=== PATIENT | male | born 1970 | race Caucasian/White ===

== ENCOUNTER → 2016-09-27 | Outpatient (CLI) | payer BC ==
[~2016-09-27] MED LIST: Gadobenate Dimeglumine 529 MG/ML 20 ML SDV IV ONE
--- NOTE | 2016-09-29 16:04 | MR ---
EXAM DATE: 09/27/16 PATIENT'S AGE: 46 Patient: LUISANA DATE Facility: [facility], [facility] Site . Site : 1970 Study: MRI-Head W/ and W/O Cont [id number] 7:42:35 PM Ordering Physician: Rodrigo Chao Final Report: Indication: 46-year-old male. Abnormality of gait and mobility. Technique: Three plane volumetric T1 weighted, T2 axial, FLAIR axial, diffusion axial, ADC map axial and 3 plane postcontrast T1 images acquired. Findings: There is no restricted diffusion. There is no pathologic intracranial enhancement although image quality is moderately degraded by patient motion. The ventricles are normal. There is no pathologic intra-axial signal or pathologic extra-axial fluid collection. Cerebellar tonsils normally situated optic chiasm and pituitary normal. Right maxillary sinus is opacified. Mucosal thickening is otherwise present in the paranasal sinuses and left mastoid tip. Usual flow voids in the [place]. Intraorbital tissues are normal. Impression: 1. No intracranial mass, no hydrocephalus, no cerebellar atrophy or no acute intracranial finding. 2. Image degradation by patient motion. 3. No restricted diffusion. 4. No convincing pathologic intracranial enhancement. 5. No pathologic intra-axial signal. 6. Opacified right maxillary sinus. Correlation for symptoms of sinusitis is suggested. Benign mucosal thickening is otherwise present in the paranasal sinuses and left mastoid tip. Dictated by Gabriel Easton MD @ Sep 28 2016 4:42PM Signed by: Gabriel Easton MD @09/28/2016 4:48:56 PM (Electronic Signature) Report Signed by Proxy. [facility]
== END ==
LOC: MW.MRI 16:53
PROVIDERS: ATTEND Otolaryngology
DX: R26.89 Other abnormalities of gait and mobility (principal)
CPT/HCPCS: 70553; 70553-26; A9577

== ENCOUNTER 2019-04-04 17:09 | Observation (INO) | payer SELFPAY ==
[2019-04-04] MEDS ORDERED: Sodium Chloride 0.9% 1,000 ML IV ONE ×2 (17:11→19:01)
--- NOTE | 2019-04-04 17:33 | CT ---
INDICATION: Syncope. TECHNIQUE: CT head without IV contrast. COMPARISON: CT head 12/18/2015. FINDINGS: Moderate amount of loculated fluid and/or retention cysts in the left maxillary sinus more prominent. The complete opacification of the right maxillary sinus has resolved with mild mucosal thickening and nodularity in the maxillary sinus today. Moderate amounts of fluid and mucosal thickening in the ethmoidal sinuses. Small amount of fluid and mucosal thickening right frontal sinus. Mild mucosal thickening right sphenoid sinus new. Mucosal thickening in the left sphenoid sinus has resolved. Opacification of left inferior mastoid air cells stable and likely related to chronic inflammation. No acute intracranial hemorrhage, edema, or mass-effect. Remainder negative. IMPRESSION: 1. No acute intracranial disease. 2. Gdfg-ca-[id number] sinusitis has changed variably since December 2015. Stable chronic mild inflammatory changes left mastoid air cells. Please note that all CT scans at this facility use dose modulation, iterative reconstruction, and/or weight-based dosing when appropriate to reduce radiation dose to as low as reasonably achievable. Dictated by Mauricio Delacruz MD @ Apr 04 2019 5:28PM Signed by Dr. Mauricio Delacruz @ Apr 04 2019 5:31PM
--- NOTE | 2019-04-04 17:42 | CR ---
HISTORY: Syncope. COMPARISON: None. FINDINGS: Single AP view of the chest. The lungs are clear. Costophrenic angles sharp. Heart size and pulmonary vascularity within normal limits. Dictated by Maria Esther Pope MD @ Apr 04 2019 5:40PM Signed by Dr. Maria Esther Pope @ Apr 04 2019 5:41PM
--- NOTE | 2019-04-04 17:43 | EDM.PDOC ---
ED HPI GENERAL MEDICAL PROBLEM - General Chief Complaint: Syncope Stated Complaint: FAINTING Time Seen by Provider: 04/04/19 17:21 Source of Information: Reports: Patient History Limitations: Reports: No Limitations - History of Present Illness INITIAL COMMENTS - FREE TEXT/NARRATIVE: HISTORY AND PHYSICAL: History of present illness: Patient is a 48-year-old male who presents to the emergency room by EMS with syncope complaint. Prior to arrival the patient had been having a "normal day" but then had an episode where he felt very dizzy. He reports he had a brief syncopal event. EMS was called to scene. Upon arrival the ambulance crew states he was very pale and appeared diaphoretic. As they were getting his vital signs while he was resting on the cot he had a second syncopal event which lasted just a few seconds. They report that his pulse had gone down into the 40s and he was hypotensive. Blood sugar 80. Patient states he felt very dizzy and nauseated during this brief episode. Upon arrival the patient is alert and oriented. He states that his day was normal and he had not had anything out of the ordinary occur. He denies any drug abuse. He has had 3 beers today while eating. Patient denies any fever, chills, headache, change in vision. Denies any chest pain, back pain, shortness of breath or cough. Denies any abdominal pain, vomiting, diarrhea, constipation or dysuria. Has not noted any blood in urine or stool. Patient has been eating and drinking appropriately. Review of systems: As per history of present illness and below otherwise all systems reviewed and negative. Past medical history: As per history of present illness and as reviewed below otherwise noncontributory. Surgical history: As per history of present illness and as reviewed below otherwise noncontributory. Social history: See social history for further information Family history: As per history of present illness and as reviewed below otherwise noncontributory. Physical exam: General: Well-developed and well-nourished 48-year-old male. Alert and oriented. Nontoxic appearing and in no acute distress. HEENT: Atraumatic, normocephalic, pupils equal and reactive bilaterally, negative for conjunctival pallor or scleral icterus, mucous membranes moist, TMs normal bilaterally, throat clear, neck supple, nontender, trachea midline. No drooling or trismus noted. No meningeal signs. No hot potato voice noted. Lungs: Clear to auscultation, breath sounds equal bilaterally, chest nontender. Heart: S1S2, regular rate and rhythm without overt murmur Abdomen: Soft, nondistended, nontender. Negative for masses. Negative for costovertebral tenderness. Pelvis: Stable nontender. Skin: Intact, warm, dry. No lesions or rashes noted. Extremities: Atraumatic, moves all extremities per self without difficulty or deficits, negative for cords or calf pain. Neurovascular unremarkable. Neuro: Awake, alert, oriented. Cranial nerves II through XII unremarkable. Cerebellum unremarkable. Motor and sensory unremarkable throughout. Exam nonfocal. Notes: Patient had 1 L bolus and 4 mg of Zofran prior to arrival. Orthostatic vital signs are unremarkable and he was asymptomatic. Head CT and chest x-ray are unremarkable. Lab work is unremarkable. Discussed findings with patient. He is agreeable for admission. Dr. Bay was consulted and agreeable for further care and management. Patient will be placed on telemetry Diagnostics: CBC, CMP, troponin, EKG, chest x-ray, head CT, lipase, drug screen, UA, orthostatic vital signs Therapeutics: Normal saline at 125 per hour Impression: Syncope Plan: Observation admission with Telemetry Definitive disposition and diagnosis as appropriate pending reevaluation and review of above. - Related Data Allergies Allergy/AdvReac Type Severity Reaction Status Date / Time No Known Allergies Allergy Verified 05/23/16 12:20 Home Meds: Home Meds . [No Known Home Meds] 02/14/15 [History] Past Medical History HEENT History: Reports: None Cardiovascular History: Reports: None Respiratory History: Reports: None Gastrointestinal History: Reports: None Genitourinary History: Reports: None Musculoskeletal History: Reports: None Neurological History: Reports: Vertigo Psychiatric History: Reports: Learning Disability Endocrine/Metabolic History: Reports: None Hematologic History: Reports: None Immunologic History: Reports: None Oncologic (Cancer) History: Reports: None Dermatologic History: Reports: None - Infectious Disease History Infectious Disease History: Reports: Chicken Pox - Past Surgical History Head Surgeries/Procedures: Reports: None HEENT Surgical History: Reports: Tonsillectomy Cardiovascular Surgical History: Reports: None Respiratory Surgical History: Reports: None GI Surgical History: Reports: None Male Surgical History: Reports: None Endocrine Surgical History: Reports: None Neurological Surgical History: Reports: None Musculoskeletal Surgical History: Reports: Other (See Below) Oncologic Surgical History: Reports: None Dermatological Surgical History: Reports: None Social & Family History - Family History Family Medical History: Noncontributory - Tobacco Use Smoking Status *Q: Never Smoker Second Hand Smoke Exposure: No - Caffeine Use Caffeine Use: Reports: Coffee, Energy Drinks Caffeine Use Comment: 1-2/day - Recreational Drug Use Recreational Drug Use: No ED ROS GENERAL - Review of Systems Review Of Systems: Comprehensive ROS is negative, except as noted in HPI. - Physical Exam Exam: See Below (See dictation) Course - Vital Signs Last Recorded V/S: Last Vital Signs Temp 97.2 F 04/04/19 17:11 Pulse 60 04/04/19 18:10 Resp 16 04/04/19 18:10 BP 136/77 04/04/19 18:10 Pulse Ox 98 04/04/19 18:10 Orthostatic Blood Pressure [ 123/80 Standing] Orthostatic Blood Pressure [ 136/81 Sitting] Orthostatic Blood Pressure [ 126/74 Supine] - Orders/Labs/Meds Orders: Active Orders 24 hr Category Date Time Status Admission Status [Patient Status] [ADT] Stat ADT 04/04/19 18:09 Ordered EKG Documentation Completion [RC] STAT Care 04/04/19 17:11 Active Orthostatic Vital Signs [RC] ASDIRECTED Care 04/04/19 17:11 Active Sodium Chloride 0.9% [Normal Saline] 1,000 ml Med 04/04/19 17:11 Active IV STAT Medication Orders Sodium Chloride (Normal Saline) 1,000 mls @ 999 mls/hr IV STAT ONE Stop: 04/04/19 18:11 Last Admin: 04/04/19 17:32 Dose: 999 mls/hr Labs: Laboratory Tests 04/04/19 04/04/19 04/04/19 Range/Units 17:13 17:13 17:40 WBC 8.25 (4.0-11.0) K/uL RBC 4.66 (4.50-5.90) M/uL Hgb 13.9 (13.0-17.0) g/dL Hct 41.6 (38.0-50.0) % MCV 89.3 (80.0-98.0) fL MCH 29.8 (27.0-32.0) pg MCHC 33.4 (31.0-37.0) g/dL RDW Std Deviation 41.1 (28.0-62.0) fl RDW Coeff of Andriy 13 (11.0-15.0) % Plt Count 330 (150-400) K/uL MPV 9.40 (7.40-12.00) fL Neut % (Auto) 52.5 (48.0-80.0) % Lymph % (Auto) 37.9 (16.0-40.0) % [place] % (Auto) 5.3 (0.0-15.0) % Eos % (Auto) 4.1 (0.0-7.0) % Baso % (Auto) 0.2 (0.0-1.5) % Neut # (Auto) 4.3 (1.4-5.7) K/uL Lymph # (Auto) 3.1 H (0.6-2.4) K/uL [place] # (Auto) 0.4 (0.0-0.8) K/uL Eos # (Auto) 0.3 (0.0-0.7) K/uL Baso # (Auto) 0.0 (0.0-0.1) K/uL Nucleated RBC % 0.0 /100WBC Nucleated RBCs # 0 K/uL Sodium 140 (136-148) mmol/L Potassium 4.0 (3.5-5.1) mmol/L Chloride 104 (98-107) mmol/L Carbon Dioxide 25.7 (21.0-32.0) mmol/L BUN 10 (7.0-18.0) mg/dL Creatinine 1.1 (0.8-1.3) mg/dL Est Cr Clr Drug Dosing 98.64 mL/min Estimated GFR (MDRD) > 60.0 ml/min Glucose 113 H (74-106) mg/dL Calcium 8.5 (8.5-10.1) mg/dL Total Bilirubin 0.4 (0.2-1.0) mg/dL AST 17 (15-37) IU/L ALT 45 (14-63) IU/L Alkaline Phosphatase 76 (46-116) U/L Troponin I < 0.050 (0.000-0.056) ng/mL Total Protein 6.9 (6.4-8.2) g/dL Albumin 3.0 L (3.4-5.0) g/dL Globulin 3.9 (2.6-4.0) g/dL Albumin/Globulin Ratio 0.8 L (0.9-1.6) Lipase 112 (73-393) U/L Urine Color YELLOW Urine Appearance CLEAR Urine pH 5.5 (5.0-8.0) Ur Specific [place] 1.010 (1.001-1.035) Urine Protein NEGATIVE (NEGATIVE) mg/dL Urine Glucose (UA) NEGATIVE (NEGATIVE) mg/dL Urine Ketones NEGATIVE (NEGATIVE) mg/dL Urine Occult Blood NEGATIVE (NEGATIVE) Urine Nitrite NEGATIVE (NEGATIVE) Urine Bilirubin NEGATIVE (NEGATIVE) Urine Urobilinogen 0.2 (<2.0) EU/dL Ur Leukocyte Esterase NEGATIVE (NEGATIVE) Urine Opiates Screen (NEGATIVE) Ur Oxycodone Screen (NEGATIVE) Urine Methadone Screen (NEGATIVE) Ur Barbiturates Screen (NEGATIVE) Ur Phencyclidine Scrn (NEGATIVE) Ur Amphetamine Screen (NEGATIVE) U Methamphetamines Scrn (NEGATIVE) U Benzodiazepines Scrn (NEGATIVE) U Cocaine Metab Screen (NEGATIVE) U Marijuana (THC) Screen (NEGATIVE) Ethyl Alcohol 16 mg/dL 04/04/19 Range/Units 17:40 WBC (4.0-11.0) K/uL RBC (4.50-5.90) M/uL Hgb (13.0-17.0) g/dL Hct (38.0-50.0) % MCV (80.0-98.0) fL MCH (27.0-32.0) pg MCHC (31.0-37.0) g/dL RDW Std Deviation (28.0-62.0) fl RDW Coeff of Andriy (11.0-15.0) % Plt Count (150-400) K/uL MPV (7.40-12.00) fL Neut % (Auto) (48.0-80.0) % Lymph % (Auto) (16.0-40.0) % [place] % (Auto) (0.0-15.0) % Eos % (Auto) (0.0-7.0) % Baso % (Auto) (0.0-1.5) % Neut # (Auto) (1.4-5.7) K/uL Lymph # (Auto) (0.6-2.4) K/uL [place] # (Auto) (0.0-0.8) K/uL Eos # (Auto) (0.0-0.7) K/uL Baso # (Auto) (0.0-0.1) K/uL Nucleated RBC % /100WBC Nucleated RBCs # K/uL Sodium (136-148) mmol/L Potassium (3.5-5.1) mmol/L Chloride (98-107) mmol/L Carbon Dioxide (21.0-32.0) mmol/L BUN (7.0-18.0) mg/dL Creatinine (0.8-1.3) mg/dL Est Cr Clr Drug Dosing mL/min Estimated GFR (MDRD) ml/min Glucose (74-106) mg/dL Calcium (8.5-10.1) mg/dL Total Bilirubin (0.2-1.0) mg/dL AST (15-37) IU/L ALT (14-63) IU/L Alkaline Phosphatase (46-116) U/L Troponin I (0.000-0.056) ng/mL Total Protein (6.4-8.2) g/dL Albumin (3.4-5.0) g/dL Globulin (2.6-4.0) g/dL Albumin/Globulin Ratio (0.9-1.6) Lipase (73-393) U/L Urine Color Urine Appearance Urine pH (5.0-8.0) Ur Specific [place] (1.001-1.035) Urine Protein (NEGATIVE) mg/dL Urine Glucose (UA) (NEGATIVE) mg/dL Urine Ketones (NEGATIVE) mg/dL Urine Occult Blood (NEGATIVE) Urine Nitrite (NEGATIVE) Urine Bilirubin (NEGATIVE) Urine Urobilinogen (<2.0) EU/dL Ur Leukocyte Esterase (NEGATIVE) Urine Opiates Screen NEGATIVE (NEGATIVE) Ur Oxycodone Screen NEGATIVE (NEGATIVE) Urine Methadone Screen NEGATIVE (NEGATIVE) Ur Barbiturates Screen NEGATIVE (NEGATIVE) Ur Phencyclidine Scrn NEGATIVE (NEGATIVE) Ur Amphetamine Screen NEGATIVE (NEGATIVE) U Methamphetamines Scrn NEGATIVE (NEGATIVE) U Benzodiazepines Scrn NEGATIVE (NEGATIVE) U Cocaine Metab Screen NEGATIVE (NEGATIVE) U Marijuana (THC) Screen NEGATIVE (NEGATIVE) Ethyl Alcohol mg/dL Meds: Medications Generic Name Dose Route Start Last Admin Trade Name Viviana PRN Reason Stop Dose Admin Sodium Chloride 1,000 mls @ 999 mls/hr 04/04/19 17:11 04/04/19 17:32 Normal Saline IV 04/04/19 18:11 999 mls/hr STAT ONE Administration Departure - Departure Time of Disposition: 18:11 Disposition: Refer to Observation Clinical Impression: Syncope Qualifiers: Syncope type: unspecified Qualified Code(s): R55 - Syncope and collapse - Discharge Information Referrals: PCP,Unobtain [Primary Care Provider] - Forms: ED Department Discharge - My Orders Last 24 Hours: My Active Orders 04/04/19 17:11 EKG Documentation Completion [RC] STAT Orthostatic Vital Signs [RC] ASDIRECTED Sodium Chloride 0.9% [Normal Saline] 1,000 ml IV STAT 04/04/19 18:09 Admission Status [Patient Status] [ADT] Stat - Assessment/Plan Last 24 Hours: My Active Orders 04/04/19 17:11 EKG Documentation Completion [RC] STAT Orthostatic Vital Signs [RC] ASDIRECTED Sodium Chloride 0.9% [Normal Saline] 1,000 ml IV STAT 04/04/19 18:09 Admission Status [Patient Status] [ADT] Stat
[2019-04-04 17:56] LABS: BLOOD UREA NITROGEN,BUN 10 mg/dL (7.0-18.0); CARBON DIOXIDE,CO2 25.7 mmol/L (21.0-32.0); CHLORIDE,CL 104 mmol/L (98-107); GLUCOSE RANDOM 113 mg/dL (74-106); LIPASE 112 U/L (73-393); SODIUM,NA 140 mmol/L (136-148)
[2019-04-04] MEDS ORDERED: Acetaminophen 325 MG Tab PO PRN (18:50)
[2019-04-04] MEDS ORDERED: Ondansetron 4 MG Tab.DIS PO PRN (18:50)
[2019-04-04] MEDS ORDERED: Ondansetron 4 MG/2 ML SDV IVPUSH PRN (18:50)
[2019-04-04] MEDS ORDERED: Enoxaparin 40 MG/0.4 ML Syringe SUBCUT SCH (19:00)
--- NOTE | 2019-04-04 19:00 | PCM.HP.2 ---
<Stef Alvarado M - Last Filed: 04/05/19 12:51> H&P History of Present Illness - General Date of Service: 04/04/19 Admit Problem/Dx: Admission Diagnosis/Problem Admission Diagnosis/Problem Syncope Source of Information: Patient History Limitations: Reports: No Limitations - History of Present Illness Initial Comments - Free Text/Narative: 48-year-old male presented to ER via EMS after having a syncopal episode while at home earlier today. He reports no significant PMH. Patient reports that he was sitting while talking with people at home and noticed his vision started closing in and felt dizzy. He then got up but then noted this made his symptoms worse and then he fell to the floor. There was no witnessed seizure activity and he denies any bowel or bladder incontinence. He reports that he may have been a little dehydrated today. EMS was called and they noted that when they were checking his vitals he had another syncopal episode. His HR at the time was in the 40's and his blood pressure was low. He was then transferred to the ER for further work-up. Patient reports that he has been in his normal state of health recently. Denies fevers, chills, shortness of breath, nausea, chest pain , abdominal pain, diarrhea, blood in stool or blood in urine. Since being in the ER patient has had no recurrence of symptoms. Reports quitting smoking 1 year ago, drinks 6 pack per week and occasional marijuana use. In the ER, EKG showed normal sinus rhythm with HR in the 60's. Blood pressure stable. CBC and CMP unremarkable. Initial troponin negative. CXR negative. CT head negative. UA and UDS unremarkable. Negative for orthostatic hypotension. Patient admitted for further evaluation. - Related Data Allergies/Adverse Reactions: Allergies Allergy/AdvReac Type Severity Reaction Status Date / Time No Known Allergies Allergy Verified 04/04/19 22:07 Home Medications: Home Meds . [No Known Home Meds] 02/14/15 [History] Past Medical History HEENT History: Reports: None Cardiovascular History: Reports: None Respiratory History: Reports: None Gastrointestinal History: Reports: None Genitourinary History: Reports: None Musculoskeletal History: Reports: None Neurological History: Reports: Vertigo Psychiatric History: Reports: Learning Disability Endocrine/Metabolic History: Reports: None Hematologic History: Reports: None Immunologic History: Reports: None Oncologic (Cancer) History: Reports: None Dermatologic History: Reports: None - Infectious Disease History Infectious Disease History: Reports: Chicken Pox - Past Surgical History Head Surgeries/Procedures: Reports: None HEENT Surgical History: Reports: Tonsillectomy Cardiovascular Surgical History: Reports: None Respiratory Surgical History: Reports: None GI Surgical History: Reports: None Male Surgical History: Reports: None Endocrine Surgical History: Reports: None Neurological Surgical History: Reports: None Musculoskeletal Surgical History: Reports: Other (See Below) Oncologic Surgical History: Reports: None Dermatological Surgical History: Reports: None Social & Family History - Family History Family Medical History: Noncontributory - Tobacco Use Smoking Status *Q: Never Smoker Second Hand Smoke Exposure: No - Caffeine Use Caffeine Use: Reports: Coffee, Energy Drinks Caffeine Use Comment: 1-2/day - Recreational Drug Use Recreational Drug Use: No H&P Review of Systems - Review of Systems: Review Of Systems: Comprehensive ROS is negative, except as noted in HPI. Exam - Exam Exam: See Below - Vital Signs Vital Signs: Last Vital Signs Temp 97.2 F 04/04/19 17:11 Pulse 60 04/04/19 18:10 Resp 16 04/04/19 18:10 BP 136/77 04/04/19 18:10 Pulse Ox 98 04/04/19 18:10 Orthostatic Blood Pressure [ 123/80 Standing] Orthostatic Blood Pressure [ 136/81 Sitting] Orthostatic Blood Pressure [ 126/74 Supine] Weight: 123.377 kg - Exam General: Alert, Oriented, Cooperative, Other (NAD) HEENT: Conjunctiva Clear, EOMI, Hearing Intact, Mucosa Moist & [place], Posterior Pharynx Clear, Pupils Equal, Pupils Reactive Neck: Supple, Trachea Midline Lungs: Clear to Auscultation, Normal Respiratory Effort Cardiovascular: Regular Rate, Regular Rhythm GI/Abdominal Exam: Normal Bowel Sounds, Soft, Non-Tender, No Distention Extremities: Normal Inspection, No Pedal Edema Peripheral Pulses: 2+: Posterior Tibial (L), Posterior Tibial (R) Skin: Warm, Dry, Intact Neurological: Cranial Nerves Intact, Strength Equal Bilateral, Normal Speech, Normal Tone Neuro Extensive - Mental Status: Alert, Oriented x3, Normal Mood/Affect - Patient Data Lab Results Last 24 hrs: Laboratory Results - last 24 hr 04/04/19 04/04/19 04/04/19 Range/Units 17:13 17:13 17:40 WBC 8.25 (4.0-11.0) K/uL RBC 4.66 (4.50-5.90) M/uL Hgb 13.9 (13.0-17.0) g/dL Hct 41.6 (38.0-50.0) % MCV 89.3 (80.0-98.0) fL MCH 29.8 (27.0-32.0) pg MCHC 33.4 (31.0-37.0) g/dL RDW Std Deviation 41.1 (28.0-62.0) fl RDW Coeff of Andriy 13 (11.0-15.0) % Plt Count 330 (150-400) K/uL MPV 9.40 (7.40-12.00) fL Neut % (Auto) 52.5 (48.0-80.0) % Lymph % (Auto) 37.9 (16.0-40.0) % [place] % (Auto) 5.3 (0.0-15.0) % Eos % (Auto) 4.1 (0.0-7.0) % Baso % (Auto) 0.2 (0.0-1.5) % Neut # (Auto) 4.3 (1.4-5.7) K/uL Lymph # (Auto) 3.1 H (0.6-2.4) K/uL [place] # (Auto) 0.4 (0.0-0.8) K/uL Eos # (Auto) 0.3 (0.0-0.7) K/uL Baso # (Auto) 0.0 (0.0-0.1) K/uL Nucleated RBC % 0.0 /100WBC Nucleated RBCs # 0 K/uL Sodium 140 (136-148) mmol/L Potassium 4.0 (3.5-5.1) mmol/L Chloride 104 (98-107) mmol/L Carbon Dioxide 25.7 (21.0-32.0) mmol/L BUN 10 (7.0-18.0) mg/dL Creatinine 1.1 (0.8-1.3) mg/dL Est Cr Clr Drug Dosing 98.64 mL/min Estimated GFR (MDRD) > 60.0 ml/min Glucose 113 H (74-106) mg/dL Calcium 8.5 (8.5-10.1) mg/dL Total Bilirubin 0.4 (0.2-1.0) mg/dL AST 17 (15-37) IU/L ALT 45 (14-63) IU/L Alkaline Phosphatase 76 (46-116) U/L Troponin I < 0.050 (0.000-0.056) ng/mL Total Protein 6.9 (6.4-8.2) g/dL Albumin 3.0 L (3.4-5.0) g/dL Globulin 3.9 (2.6-4.0) g/dL Albumin/Globulin Ratio 0.8 L (0.9-1.6) Lipase 112 (73-393) U/L Urine Color YELLOW Urine Appearance CLEAR Urine pH 5.5 (5.0-8.0) Ur Specific [place] 1.010 (1.001-1.035) Urine Protein NEGATIVE (NEGATIVE) mg/dL Urine Glucose (UA) NEGATIVE (NEGATIVE) mg/dL Urine Ketones NEGATIVE (NEGATIVE) mg/dL Urine Occult Blood NEGATIVE (NEGATIVE) Urine Nitrite NEGATIVE (NEGATIVE) Urine Bilirubin NEGATIVE (NEGATIVE) Urine Urobilinogen 0.2 (<2.0) EU/dL Ur Leukocyte Esterase NEGATIVE (NEGATIVE) Urine Opiates Screen (NEGATIVE) Ur Oxycodone Screen (NEGATIVE) Urine Methadone Screen (NEGATIVE) Ur Barbiturates Screen (NEGATIVE) Ur Phencyclidine Scrn (NEGATIVE) Ur Amphetamine Screen (NEGATIVE) U Methamphetamines Scrn (NEGATIVE) U Benzodiazepines Scrn (NEGATIVE) U Cocaine Metab Screen (NEGATIVE) U Marijuana (THC) Screen (NEGATIVE) Ethyl Alcohol 16 mg/dL 04/04/19 Range/Units 17:40 WBC (4.0-11.0) K/uL RBC (4.50-5.90) M/uL Hgb (13.0-17.0) g/dL Hct (38.0-50.0) % MCV (80.0-98.0) fL MCH (27.0-32.0) pg MCHC (31.0-37.0) g/dL RDW Std Deviation (28.0-62.0) fl RDW Coeff of Andriy (11.0-15.0) % Plt Count (150-400) K/uL MPV (7.40-12.00) fL Neut % (Auto) (48.0-80.0) % Lymph % (Auto) (16.0-40.0) % [place] % (Auto) (0.0-15.0) % Eos % (Auto) (0.0-7.0) % Baso % (Auto) (0.0-1.5) % Neut # (Auto) (1.4-5.7) K/uL Lymph # (Auto) (0.6-2.4) K/uL [place] # (Auto) (0.0-0.8) K/uL Eos # (Auto) (0.0-0.7) K/uL Baso # (Auto) (0.0-0.1) K/uL Nucleated RBC % /100WBC Nucleated RBCs # K/uL Sodium (136-148) mmol/L Potassium (3.5-5.1) mmol/L Chloride (98-107) mmol/L Carbon Dioxide (21.0-32.0) mmol/L BUN (7.0-18.0) mg/dL Creatinine (0.8-1.3) mg/dL Est Cr Clr Drug Dosing mL/min Estimated GFR (MDRD) ml/min Glucose (74-106) mg/dL Calcium (8.5-10.1) mg/dL Total Bilirubin (0.2-1.0) mg/dL AST (15-37) IU/L ALT (14-63) IU/L Alkaline Phosphatase (46-116) U/L Troponin I (0.000-0.056) ng/mL Total Protein (6.4-8.2) g/dL Albumin (3.4-5.0) g/dL Globulin (2.6-4.0) g/dL Albumin/Globulin Ratio (0.9-1.6) Lipase (73-393) U/L Urine Color Urine Appearance Urine pH (5.0-8.0) Ur Specific [place] (1.001-1.035) Urine Protein (NEGATIVE) mg/dL Urine Glucose (UA) (NEGATIVE) mg/dL Urine Ketones (NEGATIVE) mg/dL Urine Occult Blood (NEGATIVE) Urine Nitrite (NEGATIVE) Urine Bilirubin (NEGATIVE) Urine Urobilinogen (<2.0) EU/dL Ur Leukocyte Esterase (NEGATIVE) Urine Opiates Screen NEGATIVE (NEGATIVE) Ur Oxycodone Screen NEGATIVE (NEGATIVE) Urine Methadone Screen NEGATIVE (NEGATIVE) Ur Barbiturates Screen NEGATIVE (NEGATIVE) Ur Phencyclidine Scrn NEGATIVE (NEGATIVE) Ur Amphetamine Screen NEGATIVE (NEGATIVE) U Methamphetamines Scrn NEGATIVE (NEGATIVE) U Benzodiazepines Scrn NEGATIVE (NEGATIVE) U Cocaine Metab Screen NEGATIVE (NEGATIVE) U Marijuana (THC) Screen NEGATIVE (NEGATIVE) Ethyl Alcohol mg/dL Result Diagrams: 04/04/19 17:13 04/04/19 17:13 Problem List Initiated/Reviewed/Updated: Yes Orders Last 24hrs: Active Orders 24 hr Category Date Time Status Admission Status [Patient Status] [ADT] Stat ADT 04/04/19 18:09 Active EKG Documentation Completion [RC] STAT Care 04/04/19 17:11 Active Orthostatic Vital Signs [RC] ASDIRECTED Care 04/04/19 17:11 Active Oxygen Therapy [RC] PRN Care 04/04/19 18:50 Active Telemetry Monitoring [Cardiac Monitoring] [RC] . Care 04/04/19 18:51 Active DIRECTED Up With Assistance [RC] ASDIRECTED Care 04/04/19 18:50 Active VTE/DVT Education [RC] PER UNIT ROUTINE Care 04/04/19 18:50 Active Vital Signs [RC] Q4H Care 04/04/19 18:50 Active Heart Healthy Diet [DIET] Diet 04/04/19 Dinner Active BASIC METABOLIC PANEL,BMP [CHEM] AM Lab 04/05/19 05:11 Ordered CBC WITH AUTO DIFF [HEME] AM Lab 04/05/19 05:11 Ordered LIPID PANEL [CHEM] Stat Lab 04/04/19 18:53 Ordered MAGNESIUM [CHEM] Stat Lab 04/04/19 18:53 Ordered PHOSPHORUS [CHEM] Stat Lab 04/04/19 18:53 Ordered TROPONIN I [CHEM] Q3H Lab 04/04/19 20:00 Ordered TROPONIN I [CHEM] Q3H Lab 04/04/19 23:00 Ordered TSH [CHEM] Stat Lab 04/04/19 18:53 Ordered Acetaminophen [Tylenol] Med 04/04/19 18:50 Active 650 mg PO Q4H PRN Enoxaparin [Lovenox] Med 04/04/19 19:00 Active 40 mg SUBCUT Q24H Ondansetron [Zofran ODT] Med 04/04/19 18:50 Active 4 mg PO Q4H PRN Ondansetron [Zofran] Med 04/04/19 18:50 Active 4 mg IVPUSH Q4H PRN Resuscitation Status Routine Resus Stat 04/04/19 18:50 Ordered Medication Orders Acetaminophen (Tylenol) 650 mg PO Q4H PRN PRN Reason: Pain (Mild 1-3)/fever Enoxaparin Sodium (Lovenox) 40 mg SUBCUT Q24H RUBIN Ondansetron HCl (Zofran Odt) 4 mg PO Q4H PRN PRN Reason: nausea, able to take PO Ondansetron HCl (Zofran) 4 mg IVPUSH Q4H PRN PRN Reason: Nausea Assessment/Plan Comment:: Assessment: 1. Syncopal event. 2. Bradycardia. Plan: 1. For syncopal event, will keep patient on telemetry, trend troponins, IV NS 125 cc/hr for 1L. Will check magnesium, phosphorus, TSH and lipid level. Will order ECHO. CT head negative. CXR negative. <Ajit Bay - Last Filed: 04/07/19 13:17> H&P History of Present Illness - General Admit Problem/Dx: Admission Diagnosis/Problem Admission Diagnosis/Problem Syncope Exam - Vital Signs Vital Signs: Last Vital Signs Temp 36.3 C 04/05/19 07:30 Pulse 73 04/05/19 07:30 Resp 15 04/05/19 07:30 BP 119/71 04/05/19 07:30 Pulse Ox 98 04/05/19 07:30 Orthostatic Blood Pressure [ 123/80 Standing] Orthostatic Blood Pressure [ 136/81 Sitting] Orthostatic Blood Pressure [ 126/74 Supine] - Patient Data Result Diagrams: 04/05/19 05:53 04/05/19 05:53 Assessment/Plan Comment:: I performed a history and physical exam of the patient and discussed management with resident. I have reviewed the residents note and agree with documented findings and plan unless otherwise specified in my note.
[2019-04-05 06:57] LABS: BLOOD UREA NITROGEN,BUN 8 mg/dL (7.0-18.0); CARBON DIOXIDE,CO2 27.2 mmol/L (21.0-32.0); CHLORIDE,CL 107 mmol/L (98-107); GLUCOSE RANDOM 105 mg/dL (74-106); POTASSIUM,K 4.8 mmol/L (3.5-5.1); SODIUM,NA 141 mmol/L (136-148)
[2019-04-05 07:31] VITALS: BP 119/71; PULSE 73
--- NOTE | 2019-04-05 08:05 | PCM.DCSUM1 ---
Discharge Summary - Hospital Course Brief History: 48-year-old male presented to ER via EMS after having a syncopal episode while at home earlier today. He reports no significant PMH. Patient reports that he was sitting while talking with people at home and noticed his vision started closing in and felt dizzy. He then got up but then noted this made his symptoms worse and then he fell to the floor. There was no witnessed seizure activity and he denies any bowel or bladder incontinence. He reports that he may have been a little dehydrated today. EMS was called and they noted that when they were checking his vitals he had another syncopal episode. His HR at the time was in the 40's and his blood pressure was low. He was then transferred to the ER for further work-up. Patient reports that he has been in his normal state of health recently. Denies fevers, chills, shortness of breath , nausea, chest pain, abdominal pain, diarrhea, blood in stool or blood in urine. Since being in the ER patient has had no recurrence of symptoms. Reports quitting smoking 1 year ago, drinks 6 pack per week and occasional marijuana use. In the ER, EKG showed normal sinus rhythm with HR in the 60's. Blood pressure stable. CBC and CMP unremarkable. Initial troponin negative. CXR negative. CT head negative. UA and UDS unremarkable. Negative for orthostatic hypotension. Patient admitted for further evaluation. Diagnosis: Stroke: No - Discharge Data Discharge Date: 04/05/19 Discharge Disposition: Against Medical Advice 07 Condition: Stable - Referral to Home Health Primary Care Physician: PCP Unobtainable - Patient Instructions Diet: Regular Diet as Tolerated Activity: No Strenuous Activities Driving: Do Not Drive (Until full evaluation and by [place] state law due to unexplained syncopal episode for 6 months) Showering/Bathing: September Shower Notify Provider of: Fever, Increased Pain, Swelling and Redness, Drainage, Nausea and/or Vomiting - Discharge Plan *PRESCRIPTION DRUG MONITORING PROGRAM REVIEWED*: Not Applicable *COPY OF PRESCRIPTION DRUG MONITORING REPORT IN PATIENT KATHERINE: Not Applicable Home Medications: Home Meds . [No Known Home Meds] 02/14/15 [History] Oxygen Therapy Mode: Room Air Patient Handouts: Syncope, [id number] Referrals: Cari Cruz DO [Resident] - 04/12/19 2:30 pm PCP,Unobtain [Primary Care Provider] - - Discharge Summary/Plan Comment DC Time >30 min.: No Discharge Summary/Plan Comment: Admitting Diagnoses: Syncopal episode Discharge Diagnoses: Syncopal episode Ander was admitted and monitored overnight on telemetry for syncopal episode. He was treated with IVFs and reports he is feeling better this morning. He was requesting discharge early this morning. I was able to talk with him and discussed with him the importance of placing a ZIO patch to monitor for arrhythmias. He at first was ok with getting that placed. He then changed his mind and did not want to stay for this placement. We discussed due to his syncope without a definite cause, [place] state law does not allow him to drive for 6 months. He didnt agree with this and kept saying he was just dehydrated. I told him this could be true, but without definite proof it is unsafe for him to be driving. Kathrin RN was at bedside when he was counseled on this. He signed out AMA without having ZIO patch placed or ECHO obtained. He is to follow up with PCP in 1 week. - Patient Data Vitals - Most Recent: Last Vital Signs Temp 97.4 F 04/05/19 07:30 Pulse 73 04/05/19 07:30 Resp 15 04/05/19 07:30 BP 119/71 04/05/19 07:30 Pulse Ox 98 04/05/19 07:30 Orthostatic Blood Pressure [ 123/80 Standing] Orthostatic Blood Pressure [ 136/81 Sitting] Orthostatic Blood Pressure [ 126/74 Supine] Weight - Most Recent: 129.2 kg I&O - Last 24 hours: Intake & Output 04/04/19 04/05/19 04/05/19 22:59 06:59 14:59 Intake Total 1240 Balance 1240 Lab Results - Last 24 hrs: Laboratory Results - last 24 hr 04/04/19 04/04/19 04/04/19 Range/Units 17:13 17:13 17:13 WBC 8.25 (4.0-11.0) K/uL RBC 4.66 (4.50-5.90) M/uL Hgb 13.9 (13.0-17.0) g/dL Hct 41.6 (38.0-50.0) % MCV 89.3 (80.0-98.0) fL MCH 29.8 (27.0-32.0) pg MCHC 33.4 (31.0-37.0) g/dL RDW Std Deviation 41.1 (28.0-62.0) fl RDW Coeff of Andriy 13 (11.0-15.0) % Plt Count 330 (150-400) K/uL MPV 9.40 (7.40-12.00) fL Neut % (Auto) 52.5 (48.0-80.0) % Lymph % (Auto) 37.9 (16.0-40.0) % [place] % (Auto) 5.3 (0.0-15.0) % Eos % (Auto) 4.1 (0.0-7.0) % Baso % (Auto) 0.2 (0.0-1.5) % Neut # (Auto) 4.3 (1.4-5.7) K/uL Lymph # (Auto) 3.1 H (0.6-2.4) K/uL [place] # (Auto) 0.4 (0.0-0.8) K/uL Eos # (Auto) 0.3 (0.0-0.7) K/uL Baso # (Auto) 0.0 (0.0-0.1) K/uL Nucleated RBC % 0.0 /100WBC Nucleated RBCs # 0 K/uL Sodium 140 (136-148) mmol/L Potassium 4.0 (3.5-5.1) mmol/L Chloride 104 (98-107) mmol/L Carbon Dioxide 25.7 (21.0-32.0) mmol/L BUN 10 (7.0-18.0) mg/dL Creatinine 1.1 (0.8-1.3) mg/dL Est Cr Clr Drug Dosing 98.64 mL/min Estimated GFR (MDRD) > 60.0 ml/min Glucose 113 H (74-106) mg/dL Calcium 8.5 (8.5-10.1) mg/dL Phosphorus 3.6 (2.6-4.7) mg/dL Magnesium 2.0 (1.8-2.4) mg/dL Total Bilirubin 0.4 (0.2-1.0) mg/dL AST 17 (15-37) IU/L ALT 45 (14-63) IU/L Alkaline Phosphatase 76 (46-116) U/L Troponin I < 0.050 (0.000-0.056) ng/mL Total Protein 6.9 (6.4-8.2) g/dL Albumin 3.0 L (3.4-5.0) g/dL Globulin 3.9 (2.6-4.0) g/dL Albumin/Globulin Ratio 0.8 L (0.9-1.6) Triglycerides 167 (0-200) mg/dL Cholesterol 210 H (50-200) mg/dL LDL Cholesterol, Calc 145 (60-180) mg/dL VLDL Cholesterol 33 (5-55) mg/dL HDL Cholesterol 32 L (40-60) mg/dL Cholesterol/HDL Ratio 6.6 H (3.3-6.0) Lipase 112 (73-393) U/L TSH 3rd Generation 0.75 (0.36-3.74) uIU/mL Urine Color Urine Appearance Urine pH (5.0-8.0) Ur Specific [place] (1.001-1.035) Urine Protein (NEGATIVE) mg/dL Urine Glucose (UA) (NEGATIVE) mg/dL Urine Ketones (NEGATIVE) mg/dL Urine Occult Blood (NEGATIVE) Urine Nitrite (NEGATIVE) Urine Bilirubin (NEGATIVE) Urine Urobilinogen (<2.0) EU/dL Ur Leukocyte Esterase (NEGATIVE) Urine Opiates Screen (NEGATIVE) Ur Oxycodone Screen (NEGATIVE) Urine Methadone Screen (NEGATIVE) Ur Barbiturates Screen (NEGATIVE) Ur Phencyclidine Scrn (NEGATIVE) Ur Amphetamine Screen (NEGATIVE) U Methamphetamines Scrn (NEGATIVE) U Benzodiazepines Scrn (NEGATIVE) U Cocaine Metab Screen (NEGATIVE) U Marijuana (THC) Screen (NEGATIVE) Ethyl Alcohol 16 mg/dL 04/04/19 04/04/19 04/04/19 Range/Units 17:40 17:40 19:45 WBC (4.0-11.0) K/uL RBC (4.50-5.90) M/uL Hgb (13.0-17.0) g/dL Hct (38.0-50.0) % MCV (80.0-98.0) fL MCH (27.0-32.0) pg MCHC (31.0-37.0) g/dL RDW Std Deviation (28.0-62.0) fl RDW Coeff of Andriy (11.0-15.0) % Plt Count (150-400) K/uL MPV (7.40-12.00) fL Neut % (Auto) (48.0-80.0) % Lymph % (Auto) (16.0-40.0) % [place] % (Auto) (0.0-15.0) % Eos % (Auto) (0.0-7.0) % Baso % (Auto) (0.0-1.5) % Neut # (Auto) (1.4-5.7) K/uL Lymph # (Auto) (0.6-2.4) K/uL [place] # (Auto) (0.0-0.8) K/uL Eos # (Auto) (0.0-0.7) K/uL Baso # (Auto) (0.0-0.1) K/uL Nucleated RBC % /100WBC Nucleated RBCs # K/uL Sodium (136-148) mmol/L Potassium (3.5-5.1) mmol/L Chloride (98-107) mmol/L Carbon Dioxide (21.0-32.0) mmol/L BUN (7.0-18.0) mg/dL Creatinine (0.8-1.3) mg/dL Est Cr Clr Drug Dosing mL/min Estimated GFR (MDRD) ml/min Glucose (74-106) mg/dL Calcium (8.5-10.1) mg/dL Phosphorus (2.6-4.7) mg/dL Magnesium (1.8-2.4) mg/dL Total Bilirubin (0.2-1.0) mg/dL AST (15-37) IU/L ALT (14-63) IU/L Alkaline Phosphatase (46-116) U/L Troponin I < 0.050 (0.000-0.056) ng/mL Total Protein (6.4-8.2) g/dL Albumin (3.4-5.0) g/dL Globulin (2.6-4.0) g/dL Albumin/Globulin Ratio (0.9-1.6) Triglycerides (0-200) mg/dL Cholesterol (50-200) mg/dL LDL Cholesterol, Calc (60-180) mg/dL VLDL Cholesterol (5-55) mg/dL HDL Cholesterol (40-60) mg/dL Cholesterol/HDL Ratio (3.3-6.0) Lipase (73-393) U/L TSH 3rd Generation (0.36-3.74) uIU/mL Urine Color YELLOW Urine Appearance CLEAR Urine pH 5.5 (5.0-8.0) Ur Specific [place] 1.010 (1.001-1.035) Urine Protein NEGATIVE (NEGATIVE) mg/dL Urine Glucose (UA) NEGATIVE (NEGATIVE) mg/dL Urine Ketones NEGATIVE (NEGATIVE) mg/dL Urine Occult Blood NEGATIVE (NEGATIVE) Urine Nitrite NEGATIVE (NEGATIVE) Urine Bilirubin NEGATIVE (NEGATIVE) Urine Urobilinogen 0.2 (<2.0) EU/dL Ur Leukocyte Esterase NEGATIVE (NEGATIVE) Urine Opiates Screen NEGATIVE (NEGATIVE) Ur Oxycodone Screen NEGATIVE (NEGATIVE) Urine Methadone Screen NEGATIVE (NEGATIVE) Ur Barbiturates Screen NEGATIVE (NEGATIVE) Ur Phencyclidine Scrn NEGATIVE (NEGATIVE) Ur Amphetamine Screen NEGATIVE (NEGATIVE) U Methamphetamines Scrn NEGATIVE (NEGATIVE) U Benzodiazepines Scrn NEGATIVE (NEGATIVE) U Cocaine Metab Screen NEGATIVE (NEGATIVE) U Marijuana (THC) Screen NEGATIVE (NEGATIVE) Ethyl Alcohol mg/dL 04/04/19 04/05/19 04/05/19 Range/Units 23:00 05:53 05:53 WBC 7.79 (4.0-11.0) K/uL RBC 4.65 (4.50-5.90) M/uL Hgb 13.8 (13.0-17.0) g/dL Hct 42.1 (38.0-50.0) % MCV 90.5 (80.0-98.0) fL MCH 29.7 (27.0-32.0) pg MCHC 32.8 (31.0-37.0) g/dL RDW Std Deviation 42.6 (28.0-62.0) fl RDW Coeff of Andriy 13 (11.0-15.0) % Plt Count 316 (150-400) K/uL MPV 9.60 (7.40-12.00) fL Neut % (Auto) 54.7 (48.0-80.0) % Lymph % (Auto) 34.7 (16.0-40.0) % [place] % (Auto) 7.6 (0.0-15.0) % Eos % (Auto) 2.7 (0.0-7.0) % Baso % (Auto) 0.3 (0.0-1.5) % Neut # (Auto) 4.3 (1.4-5.7) K/uL Lymph # (Auto) 2.7 H (0.6-2.4) K/uL [place] # (Auto) 0.6 (0.0-0.8) K/uL Eos # (Auto) 0.2 (0.0-0.7) K/uL Baso # (Auto) 0.0 (0.0-0.1) K/uL Nucleated RBC % 0.0 /100WBC Nucleated RBCs # 0 K/uL Sodium 141 (136-148) mmol/L Potassium 4.8 (3.5-5.1) mmol/L Chloride 107 (98-107) mmol/L Carbon Dioxide 27.2 (21.0-32.0) mmol/L BUN 8 (7.0-18.0) mg/dL Creatinine 1.0 (0.8-1.3) mg/dL Est Cr Clr Drug Dosing 108.45 mL/min Estimated GFR (MDRD) > 60.0 ml/min Glucose 105 (74-106) mg/dL Calcium 8.5 (8.5-10.1) mg/dL Phosphorus (2.6-4.7) mg/dL Magnesium (1.8-2.4) mg/dL Total Bilirubin (0.2-1.0) mg/dL AST (15-37) IU/L ALT (14-63) IU/L Alkaline Phosphatase (46-116) U/L Troponin I < 0.050 (0.000-0.056) ng/mL Total Protein (6.4-8.2) g/dL Albumin (3.4-5.0) g/dL Globulin (2.6-4.0) g/dL Albumin/Globulin Ratio (0.9-1.6) Triglycerides (0-200) mg/dL Cholesterol (50-200) mg/dL LDL Cholesterol, Calc (60-180) mg/dL VLDL Cholesterol (5-55) mg/dL HDL Cholesterol (40-60) mg/dL Cholesterol/HDL Ratio (3.3-6.0) Lipase (73-393) U/L TSH 3rd Generation (0.36-3.74) uIU/mL Urine Color Urine Appearance Urine pH (5.0-8.0) Ur Specific [place] (1.001-1.035) Urine Protein (NEGATIVE) mg/dL Urine Glucose (UA) (NEGATIVE) mg/dL Urine Ketones (NEGATIVE) mg/dL Urine Occult Blood (NEGATIVE) Urine Nitrite (NEGATIVE) Urine Bilirubin (NEGATIVE) Urine Urobilinogen (<2.0) EU/dL Ur Leukocyte Esterase (NEGATIVE) Urine Opiates Screen (NEGATIVE) Ur Oxycodone Screen (NEGATIVE) Urine Methadone Screen (NEGATIVE) Ur Barbiturates Screen (NEGATIVE) Ur Phencyclidine Scrn (NEGATIVE) Ur Amphetamine Screen (NEGATIVE) U Methamphetamines Scrn (NEGATIVE) U Benzodiazepines Scrn (NEGATIVE) U Cocaine Metab Screen (NEGATIVE) U Marijuana (THC) Screen (NEGATIVE) Ethyl Alcohol mg/dL Med Orders - Current: Current Medications Acetaminophen (Tylenol) 650 mg PO Q4H PRN PRN Reason: Pain (Mild 1-3)/fever Enoxaparin Sodium (Lovenox) 40 mg SUBCUT Q24H [facility] Last Admin: 04/04/19 20:40 Dose: 40 mg Ondansetron HCl (Zofran Odt) 4 mg PO Q4H PRN PRN Reason: nausea, able to take PO Ondansetron HCl (Zofran) 4 mg IVPUSH Q4H PRN PRN Reason: Nausea Discontinued Medications Sodium Chloride (Normal Saline) 1,000 mls @ 999 mls/hr IV STAT ONE Stop: 04/04/19 18:11 Last Admin: 04/04/19 17:32 Dose: 999 mls/hr Sodium Chloride (Normal Saline) 1,000 mls @ 125 mls/hr IV STAT ONE Stop: 04/05/19 03:00 Last Admin: 04/04/19 20:39 Dose: 125 mls/hr
== END 2019-04-05 08:20 | disposition left against medical advice (07) ==
LOC: MW.ED 17:09 → MW.MS 18:10
PROVIDERS: ADMIT Student in an Organized Health Care Education/Training Program; ATTEND Student in an Organized Health Care Education/Training Program
DX: R55 Syncope and collapse (principal); R00.1 Bradycardia, unspecified; Z87.891 Personal history of nicotine dependence; Z53.29 Procedure and treatment not carried out because of patient's decision for other reasons
CPT/HCPCS: 36415; 70450; 71045; 80048; 80053; 80061; 80305; 80320; 81003; 83690; 83735; 84100; 84443; 84484; 85025; 93005; 96360; 99285; J1650; J7040; 96361; 96372; 99284; G0378; G0480

== ENCOUNTER 2023-02-22 16:36 | Emergency (ER) | payer OTHER | END 2023-02-22 19:25 | disposition left against medical advice (07) | LOC: MW.ED 16:36 | DX: Z53.21 Procedure and treatment not carried out due to patient leaving prior to being seen by health care provider (principal) ==

== ENCOUNTER 2023-02-23 10:11 | Emergency (ER) | payer OTHER ==
[2023-02-23 12:27] VITALS: BP 145/83; PULSE 78
== END 2023-02-23 12:57 | disposition home or self-care (01) ==
LOC: MW.ED 10:11
DX: L03.116 Cellulitis of left lower limb (principal)
CPT/HCPCS: 73590-26-LT; 73590-LT; 99282; 99283

== ENCOUNTER 2023-04-24 10:03 | Emergency (ER) | payer OTHER ==
[2023-04-24 10:29] VITALS: BP 144/112; PULSE 80
== END 2023-04-24 12:35 | disposition home or self-care (01) ==
LOC: MW.ED 10:03
DX: H66.001 Acute suppurative otitis media without spontaneous rupture of ear drum, right ear (principal); H61.23 Impacted cerumen, bilateral; I10 Essential (primary) hypertension; E78.00 Pure hypercholesterolemia, unspecified; Z79.82 Long term (current) use of aspirin; Z79.899 Other long term (current) drug therapy
CPT/HCPCS: 69209; 99282; 99283

== ENCOUNTER 2023-10-04 18:23 | Emergency (ER) | payer OTHER ==
[2023-10-04] MEDS: Lidocaine 1% 5 ML VIAL INJECT STA (18:43)
[2023-10-04] MEDS: Diphtheria,Pertussis(Acell),Tetanus Vaccine 0.5 ML Syringe IM ONE (18:43)
[2023-10-04 18:55] LABS: BASOPHILS ABSOLUTE AUTO 0.05 K/uL (0.00-0.20); BASOPHILS PERCENT AUTO 0.5 % (0.0-1.0); EOSINOPHILS ABSOLUTE AUTO 0.21 K/uL (0.00-0.45); EOSINOPHILS PERCENT AUTO 2.1 % (0.0-6.0); HEMATOCRIT 41.2 % (42.0-52.0); HEMOGLOBIN 14.3 g/dL (14.0-18.0); IMMATURE GRAN ABSOLUTE AUTO 0.04 K/uL (0.00-0.05); IMMATURE GRAN PERCENT AUTO 0.4 % (0.0-0.4); LYMPHOCYTES ABSOLUTE AUTO 2.17 K/uL (1.00-4.80); LYMPHOCYTES PERCENT AUTO 21.7 % (24.0-44.0); MEAN CORPUSCULAR HEMOGLOBIN 30.4 pg (28.0-32.0); MEAN CORPUSCULAR HGB CONC 34.7 g/dL (32.0-36.0); MEAN CORPUSCULAR VOLUME 87.7 fL (83.0-99.0); MEAN PLATELET VOLUME 8.8 fL (9.4-12.4); MONOCYTES ABSOLUTE AUTO 0.81 K/uL (0.00-0.80); MONOCYTES PERCENT AUTO 8.1 % (0.0-8.0); NEUTROPHILS PERCENT AUTO 67.2 % (41.0-71.0); PLATELET COUNT,PLT 323 K/uL (150-400); WHITE BLOOD CELL COUNT,WBC 9.98 K/uL (3.9-11.3)
[2023-10-04 19:20] LABS: A/G RATIO 0.7 (0.9-1.6); BILIRUBIN TOTAL 0.6 mg/dL (0.2-1.0); CALCIUM 8.8 mg/dL (8.5-10.1); CARBON DIOXIDE,CO2 22.7 mmol/L (21.0-32.0); CREATININE 1.2 mg/dL (0.8-1.3); EST CRCL DRUG DOSING (CG) 85.39 mL/min; PROTEIN TOTAL,TP 7.1 g/dL (6.4-8.2)
[2023-10-04] MEDS: Amoxicillin/Clavulanate K 875-125 MG Tab PO STA (22:24)
[2023-10-04] MEDS: traMADol 50 MG Tab PO STA (22:24)
[2023-10-04 22:26] VITALS: BP 146/84; PULSE 84
== END 2023-10-04 22:45 ==
LOC: MW.ED 18:23
DX: S02.412A LeFort II fracture, initial encounter for closed fracture (principal); S02.413A LeFort III fracture, initial encounter for closed fracture; S03.2XXA Dislocation of tooth, initial encounter; S02.19XA Other fracture of base of skull, initial encounter for closed fracture; S02.40FA Zygomatic fracture, left side, initial encounter for closed fracture; S01.412A Laceration without foreign body of left cheek and temporomandibular area, initial encounter; I10 Essential (primary) hypertension; E78.5 Hyperlipidemia, unspecified; K05.6 Periodontal disease, unspecified; Z23 Encounter for immunization; Y04.0XXA Assault by unarmed brawl or fight, initial encounter
CPT/HCPCS: 36415; 70450; 70486; 72125; 80053; 85025; 86850; 86900; 86901; 90471; 90715; 99285; A9270; 12011; 99283; J3490

== ENCOUNTER 2023-11-13 09:42 | Emergency (ER) | payer OTHER ==
[2023-11-13 10:06] LABS: BASOPHILS ABSOLUTE AUTO 0.05 K/uL (0.00-0.20); BASOPHILS PERCENT AUTO 0.8 % (0.0-1.0); EOSINOPHILS ABSOLUTE AUTO 0.29 K/uL (0.00-0.45); EOSINOPHILS PERCENT AUTO 4.5 % (0.0-6.0); HEMATOCRIT 43.5 % (42.0-52.0); HEMOGLOBIN 14.8 g/dL (14.0-18.0); IMMATURE GRAN ABSOLUTE AUTO 0.02 K/uL (0.00-0.05); IMMATURE GRAN PERCENT AUTO 0.3 % (0.0-0.4); MEAN CORPUSCULAR HEMOGLOBIN 30.4 pg (28.0-32.0); MEAN CORPUSCULAR VOLUME 89.3 fL (83.0-99.0); MEAN PLATELET VOLUME 9.1 fL (9.4-12.4); MONOCYTES ABSOLUTE AUTO 0.25 K/uL (0.00-0.80); MONOCYTES PERCENT AUTO 3.9 % (0.0-8.0); NEUTROPHILS ABSOLUTE AUTO 3.47 K/uL (1.80-7.70); NEUTROPHILS PERCENT AUTO 53.5 % (41.0-71.0); PLATELET COUNT,PLT 355 K/uL (150-400); RED BLOOD CELL COUNT 4.87 M/uL (4.52-5.90); WHITE BLOOD CELL COUNT,WBC 6.48 K/uL (3.9-11.3)
[2023-11-13 10:36] LABS: A/G RATIO 0.8 (0.9-1.6); ALBUMIN 3.2 g/dL (3.4-5.0); BILIRUBIN TOTAL 0.7 mg/dL (0.2-1.0); CALCIUM 9.3 mg/dL (8.5-10.1); CARBON DIOXIDE,CO2 28.7 mmol/L (21.0-32.0); CREATININE 1.1 mg/dL (0.8-1.3); EST CRCL DRUG DOSING (CG) 93.16 mL/min; POTASSIUM,K 4.1 mmol/L (3.5-5.1); PROTEIN TOTAL,TP 7.1 g/dL (6.4-8.2)
[2023-11-13 10:37] LABS: MAGNESIUM 2.1 mg/dL (1.8-2.4)
[2023-11-13 10:39] LABS: INR 0.99 (0.86-1.11); PTT,PARTIAL THROMBOPLSTIN TIME 28.1 SEC (23.9-30.7)
[2023-11-13 11:14] VITALS: BP 133/77; PULSE 74
== END 2023-11-13 11:14 | disposition home or self-care (01) ==
LOC: MW.ED 09:42
DX: M94.0 Chondrocostal junction syndrome [Tietze] (principal); I10 Essential (primary) hypertension; E78.00 Pure hypercholesterolemia, unspecified; Z79.899 Other long term (current) drug therapy
CPT/HCPCS: 36415; 71046; 71046-26; 80053; 83690; 83735; 84484; 85025; 85610; 85730; 93005; 99285